=== PATIENT | male | born 1995 ===

== ENCOUNTER 2022-03-23 13:28 | Emergency (ER) | payer SELFPAY ==
[~2022-03-23] VITALS: Ht 180.3 cm; Wt 68.2 kg
[2022-03-23 13:29] VITALS: BP 11/56
== END 2022-03-23 14:02 | disposition left against medical advice (07) ==
LOC: M ED 13:28
DX: Z53.21 Procedure and treatment not carried out due to patient leaving prior to being seen by health care provider (principal)